=== PATIENT | female | born 1930 | race Two or more races ===

== ENCOUNTER 2016-04-03 02:00 | Inpatient (IN) | payer MEDICARE, OTHER ==
[~2016-04-03] VITALS: Ht 160 cm; Wt 57.2 kg
[2016-04-03] MEDS ORDERED: LORAZEPAM 0.5 MG TABLET PO PRN (03:00)
[2016-04-03] MEDS ORDERED: ACETAMINOPHEN 325 MG TABLET PO PRN (03:00)
[2016-04-03] MEDS ORDERED: MAGNESIUM HYDROXIDE 30 ML UDC PO PRN (03:00)
[2016-04-03] MEDS ORDERED: MAG HYDROX/AL HYDROX/SIMETH 30 ML UDC PO PRN (03:00)
[2016-04-03] MEDS ORDERED: TEMAZEPAM 7.5 MG CAPSULE PO PRN (03:00)
[2016-04-03] MEDS ORDERED: MEMA10TA PO (03:47)
[2016-04-03] MEDS ORDERED: HYDR-552 PO (03:47)
[2016-04-03] MEDS ORDERED: ALLO100T PO (03:47)
[2016-04-03] MEDS ORDERED: QUET25TA PO (03:47)
[2016-04-03] MEDS ORDERED: VALE500C PO (03:47)
[2016-04-03] MEDS ORDERED: MAGN500C4 PO (03:47)
[2016-04-03] MEDS ORDERED: MIRT15TA PO (03:47)
[2016-04-03] MEDS ORDERED: LATA2.5D2 EACHEYE (03:47)
[2016-04-03] MEDS ORDERED: DONE5TAB34 PO (03:47)
[2016-04-03] MEDS ORDERED: AMLO10TA4 PO (03:47)
[2016-04-03] MEDS ORDERED: MULT1CAP34 PO (03:47)
[2016-04-03] MEDS ORDERED: SERT50TA12 PO (03:47)
[2016-04-03] MEDS ORDERED: INSU100V28 IJ (03:47)
[2016-04-03] MEDS ORDERED: DEXTROSE 50%-WATER 50 ML DISP.SYRIN IV PRN (04:00)
[2016-04-03] MEDS ORDERED: INSULIN REGULAR, HUMAN 100 UNIT/ML 3 ML VIAL SQ PRN (04:00)
[2016-04-03] MEDS ORDERED: *INSULIN REGULAR(HUMULIN R)HUM 100 UNIT/ML VIAL SQ PRN (04:00)
[2016-04-03 04:01] VITALS: BP 147/61
[2016-04-03] MEDS ORDERED: Z GUARD REMEDY 2 OZ OINT TP PRN (06:00)
[2016-04-03 07:19] LABS: BASOPHILS # (AUTO) 0.1 /CMM (0.0-0.2); DIFF TOTAL % 100 %; EOSINOPHILS # (AUTO) 0.2 /CMM (0.0-0.7); EOSINOPHILS % (AUTO) 3.9 % (0.0-6.0); HEMATOCRIT 36 % (33-45); HEMOGLOBIN 12.1 g/dL (11.5-14.8); LYMPHOCYTES # (AUTO) 1.7 /CMM (0.8-4.8); LYMPHOCYTES % (AUTO) 27.7 % (20.0-44.0); MEAN CORPUSCULAR HEMOGLOBIN 31 PG (26.0-33.0); MEAN CORPUSCULAR HGB CONC 34 g/dl (31.0-36.0); MEAN CORPUSCULAR VOLUME 91 fL (82-100); MONOCYTES # (AUTO) 0.5 /CMM (0.1-1.30); MONOCYTES % (AUTO) 8.7 % (2.0-12.0); NEUTROPHILS # (AUTO) 3.7 /CMM (1.8-8.9); NEUTROPHILS % (AUTO) 58.7 % (43.0-81.0); PLATELET COUNT (AUTO) 308 /CMM (150-450); RED BLOOD CELL COUNT(AUTO) 3.97 MIL/uL (4.0-5.2); WHITE BLOOD COUNT (AUTO) 6.3 K/uL (4.3-11.0)
[2016-04-03 07:54] LABS: ALBUMIN 2.4 g/dL (3.4-5.0); BILIRUBIN,TOTAL 0.3 mg/dL (0.2-1.0); CALCIUM, SERUM 8.4 mg/dL (8.5-10.1); CREATININE 0.8 mg/dL (0.6-1.3); POTASSIUM 3.9 mmol/L (3.5-5.1); TOTAL PROTEIN, SERUM 5.8 g/dL (6.4-8.2)
[2016-04-03 08:00] VITALS: BP 128/61
[2016-04-03] MEDS ORDERED: VALERIAN ROOT PO SCH (09:00)
[2016-04-03] MEDS: BLOOD SUGAR DIAGNOSTIC 1 EACH STRIP VI SCH ×5 (09:10→22:06)
[2016-04-03] MEDS: ALLOPURINOL 100 MG TABLET PO SCH (09:21)
[2016-04-03] MEDS: MULTIVITAMINS,THERAPEUTIC 1 UDTAB TABLET PO SCH (09:21)
[2016-04-03] MEDS: AMLODIPINE BESYLATE 10 MG TABLET PO SCH (09:21)
[2016-04-03] MEDS: MAGNESIUM OXIDE 400 MG TABLET PO SCH ×2 (09:21→16:59)
[2016-04-03] MEDS: UREA 10% -AHA 4% CREAM 57 GM TUBE TP SCH ×2 (13:13→17:00)
[2016-04-03] MEDS: CLOTRIMAZOLE/BETAMETASONE DIPROPIONATE 15 GM TUBE TP SCH ×2 (13:13→17:00)
[2016-04-03 16:00] VITALS: BP 135/65
[2016-04-03 20:00] VITALS: BP 103/51
[2016-04-03] MEDS: ATORVASTATIN 40 MG TABLET PO SCH (21:54)
[2016-04-03] MEDS: LATANOPROST EYE DROP 0.005% 2.5 ML BOTTLE EACHEYE SCH (21:56)
[2016-04-03] MEDS: MIRTAZAPINE 15 MG TABLET PO SCH (22:05)
[2016-04-03] MEDS: OLANZAPINE 10 MG TABLET PO SCH (22:19)
[2016-04-04] MEDS: UREA 10% -AHA 4% CREAM 57 GM TUBE TP SCH ×3 (05:12→18:20)
[2016-04-04] MEDS: CLOTRIMAZOLE/BETAMETASONE DIPROPIONATE 15 GM TUBE TP SCH ×3 (05:12→18:20)
[2016-04-04 08:00] VITALS: BP 127/56
[2016-04-04] MEDS: AMLODIPINE BESYLATE 10 MG TABLET PO SCH ×2 (09:00→10:35)
[2016-04-04] MEDS: MAGNESIUM OXIDE 400 MG TABLET PO SCH ×3 (09:00→17:00)
[2016-04-04] MEDS: BLOOD SUGAR DIAGNOSTIC 1 EACH STRIP VI SCH ×4 (10:34→21:37)
[2016-04-04] MEDS: MULTIVITAMINS,THERAPEUTIC 1 UDTAB TABLET PO SCH (10:35)
[2016-04-04] MEDS: ALLOPURINOL 100 MG TABLET PO SCH (10:35)
[2016-04-04 16:38] VITALS: BP 118/55
[2016-04-04] MEDS: MUPIROCIN OINT 2% 22 GM TUBE SCH ×2 (17:00→18:29)
[2016-04-04 20:02] VITALS: BP 135/74
[2016-04-04] MEDS: MIRTAZAPINE 15 MG TABLET PO SCH (21:31)
[2016-04-04] MEDS: LATANOPROST EYE DROP 0.005% 2.5 ML BOTTLE EACHEYE SCH (21:35)
[2016-04-04] MEDS: OLANZAPINE 10 MG TABLET PO SCH (21:37)
[2016-04-04] MEDS: ATORVASTATIN 40 MG TABLET PO SCH (21:37)
[2016-04-05] MEDS: UREA 10% -AHA 4% CREAM 57 GM TUBE TP SCH ×2 (05:25→17:34)
[2016-04-05] MEDS: CLOTRIMAZOLE/BETAMETASONE DIPROPIONATE 15 GM TUBE TP SCH ×2 (05:26→17:33)
[2016-04-05] MEDS: BLOOD SUGAR DIAGNOSTIC 1 EACH STRIP VI SCH ×2 (07:30→12:00)
[2016-04-05 08:00] VITALS: BP 124/54
[2016-04-05] MEDS: ALLOPURINOL 100 MG TABLET PO SCH (09:00)
[2016-04-05] MEDS: MULTIVITAMINS,THERAPEUTIC 1 UDTAB TABLET PO SCH (09:00)
[2016-04-05] MEDS: MUPIROCIN OINT 2% 22 GM TUBE SCH (09:00)
[2016-04-05] MEDS: AMLODIPINE BESYLATE 10 MG TABLET PO SCH (09:00)
[2016-04-05] MEDS: MAGNESIUM OXIDE 400 MG TABLET PO SCH ×2 (09:00→16:18)
[2016-04-05] MEDS: OLANZAPINE 2.5 MG TABLET PO SCH ×3 (09:00→10:24)
[2016-04-05 16:00] VITALS: BP 126/50
[2016-04-05 20:31] VITALS: BP 111/54
[2016-04-05] MEDS: MIRTAZAPINE 15 MG TABLET PO SCH (21:52)
[2016-04-05] MEDS: ATORVASTATIN 40 MG TABLET PO SCH (21:52)
[2016-04-05] MEDS: OLANZAPINE 10 MG TABLET PO SCH (21:52)
[2016-04-05] MEDS: LATANOPROST EYE DROP 0.005% 2.5 ML BOTTLE EACHEYE SCH (21:59)
[2016-04-06] MEDS: UREA 10% -AHA 4% CREAM 57 GM TUBE TP SCH ×2 (05:48→17:08)
[2016-04-06] MEDS: CLOTRIMAZOLE/BETAMETASONE DIPROPIONATE 15 GM TUBE TP SCH ×2 (05:48→17:08)
[2016-04-06 08:00] VITALS: BP 138/64
[2016-04-06] MEDS: OLANZAPINE 2.5 MG TABLET PO SCH (08:25)
[2016-04-06] MEDS: ALLOPURINOL 100 MG TABLET PO SCH (08:26)
[2016-04-06] MEDS: MULTIVITAMINS,THERAPEUTIC 1 UDTAB TABLET PO SCH (08:26)
[2016-04-06] MEDS: MUPIROCIN OINT 2% 22 GM TUBE SCH (08:27)
[2016-04-06] MEDS: AMLODIPINE BESYLATE 10 MG TABLET PO SCH (08:33)
[2016-04-06] MEDS: MAGNESIUM OXIDE 400 MG TABLET PO SCH ×2 (08:33→17:06)
[2016-04-06 16:23] VITALS: BP 126/69
[2016-04-06] MEDS: OLANZAPINE 10 MG TABLET PO SCH (19:56)
[2016-04-06] MEDS: HYDROCODONE/APAP 5/325MG 1 EACH TABLET PO PRN (19:56)
[2016-04-06] MEDS: MIRTAZAPINE 15 MG TABLET PO SCH (19:56)
[2016-04-06] MEDS: ATORVASTATIN 40 MG TABLET PO SCH (19:56)
[2016-04-06] MEDS: LATANOPROST EYE DROP 0.005% 2.5 ML BOTTLE EACHEYE SCH (21:22)
[2016-04-06 23:51] VITALS: BP 112/63
[2016-04-07] MEDS: UREA 10% -AHA 4% CREAM 57 GM TUBE TP SCH ×2 (06:19→17:07)
[2016-04-07] MEDS: CLOTRIMAZOLE/BETAMETASONE DIPROPIONATE 15 GM TUBE TP SCH ×2 (06:20→17:07)
[2016-04-07 08:00] VITALS: BP 96/56
[2016-04-07] MEDS: OLANZAPINE 2.5 MG TABLET PO SCH (08:00)
[2016-04-07] MEDS: MULTIVITAMINS,THERAPEUTIC 1 UDTAB TABLET PO SCH (08:00)
[2016-04-07] MEDS: ALLOPURINOL 100 MG TABLET PO SCH (08:00)
[2016-04-07] MEDS: MAGNESIUM OXIDE 400 MG TABLET PO SCH ×2 (08:01→17:00)
[2016-04-07] MEDS: MUPIROCIN OINT 2% 22 GM TUBE SCH (08:01)
[2016-04-07] MEDS: AMLODIPINE BESYLATE 10 MG TABLET PO SCH (08:01)
[2016-04-07 16:04] VITALS: BP 115/58
[2016-04-07 20:00] VITALS: BP 103/58
[2016-04-07] MEDS: OLANZAPINE 10 MG TABLET PO SCH (21:34)
[2016-04-07] MEDS: MIRTAZAPINE 15 MG TABLET PO SCH (21:34)
[2016-04-07] MEDS: ATORVASTATIN 40 MG TABLET PO SCH (21:34)
[2016-04-07] MEDS: LATANOPROST EYE DROP 0.005% 2.5 ML BOTTLE EACHEYE SCH (21:36)
[2016-04-08] MEDS: CLOTRIMAZOLE/BETAMETASONE DIPROPIONATE 15 GM TUBE TP SCH ×2 (06:00→18:36)
[2016-04-08] MEDS: UREA 10% -AHA 4% CREAM 57 GM TUBE TP SCH ×2 (06:00→18:35)
[2016-04-08 08:20] VITALS: BP 108/61
[2016-04-08] MEDS: AMLODIPINE BESYLATE 10 MG TABLET PO SCH (09:00)
[2016-04-08] MEDS: MAGNESIUM OXIDE 400 MG TABLET PO SCH ×2 (09:00→17:00)
[2016-04-08] MEDS: OLANZAPINE 2.5 MG TABLET PO SCH (09:13)
[2016-04-08] MEDS: ALLOPURINOL 100 MG TABLET PO SCH (09:13)
[2016-04-08] MEDS: MULTIVITAMINS,THERAPEUTIC 1 UDTAB TABLET PO SCH (09:14)
[2016-04-08] MEDS: MUPIROCIN OINT 2% 22 GM TUBE SCH (09:19)
[2016-04-08] MEDS: HYDROCODONE/APAP 5/325MG 1 EACH TABLET PO PRN (14:23)
[2016-04-08 16:00] VITALS: BP 106/61
[2016-04-08 20:01] VITALS: BP 102/43
[2016-04-08] MEDS: ATORVASTATIN 40 MG TABLET PO SCH (21:24)
[2016-04-08] MEDS: OLANZAPINE 10 MG TABLET PO SCH (21:25)
[2016-04-08] MEDS: MIRTAZAPINE 15 MG TABLET PO SCH (21:25)
[2016-04-08] MEDS: LATANOPROST EYE DROP 0.005% 2.5 ML BOTTLE EACHEYE SCH (21:28)
[2016-04-09] MEDS: CLOTRIMAZOLE/BETAMETASONE DIPROPIONATE 15 GM TUBE TP SCH ×2 (05:44→16:46)
[2016-04-09] MEDS: UREA 10% -AHA 4% CREAM 57 GM TUBE TP SCH ×2 (05:49→16:45)
[2016-04-09 08:00] VITALS: BP 110/59
[2016-04-09] MEDS: ALLOPURINOL 100 MG TABLET PO SCH (09:00)
[2016-04-09] MEDS: MULTIVITAMINS,THERAPEUTIC 1 UDTAB TABLET PO SCH (10:44)
[2016-04-09] MEDS: OLANZAPINE 2.5 MG TABLET PO SCH (10:45)
[2016-04-09] MEDS: AMLODIPINE BESYLATE 10 MG TABLET PO SCH (10:45)
[2016-04-09] MEDS: MAGNESIUM OXIDE 400 MG TABLET PO SCH ×2 (10:46→16:43)
[2016-04-09] MEDS: MUPIROCIN OINT 2% 22 GM TUBE SCH (10:46)
[2016-04-09 16:00] VITALS: BP 141/65
[2016-04-09] MEDS ORDERED: MUPIROCIN OINT 2% 22 GM TUBE SCH (17:00)
[2016-04-09 19:53] VITALS: BP 128/58
[2016-04-09] MEDS: MIRTAZAPINE 15 MG TABLET PO SCH (21:00)
[2016-04-09] MEDS: ATORVASTATIN 40 MG TABLET PO SCH (21:00)
[2016-04-09] MEDS: OLANZAPINE 10 MG TABLET PO SCH (21:00)
[2016-04-09] MEDS: LATANOPROST EYE DROP 0.005% 2.5 ML BOTTLE EACHEYE SCH (22:11)
[2016-04-10] MEDS: CLOTRIMAZOLE/BETAMETASONE DIPROPIONATE 15 GM TUBE TP SCH ×2 (06:40→18:36)
[2016-04-10] MEDS: UREA 10% -AHA 4% CREAM 57 GM TUBE TP SCH ×2 (06:40→18:36)
[2016-04-10 08:05] VITALS: BP 103/69
[2016-04-10] MEDS: OLANZAPINE 2.5 MG TABLET PO SCH (09:59)
[2016-04-10] MEDS: MAGNESIUM OXIDE 400 MG TABLET PO SCH ×2 (09:59→16:07)
[2016-04-10] MEDS: MULTIVITAMINS,THERAPEUTIC 1 UDTAB TABLET PO SCH (09:59)
[2016-04-10] MEDS: ALLOPURINOL 100 MG TABLET PO SCH (09:59)
[2016-04-10 16:23] VITALS: BP 122/65
[2016-04-10 20:54] VITALS: BP 110/59
[2016-04-10] MEDS: ATORVASTATIN 40 MG TABLET PO SCH (21:34)
[2016-04-10] MEDS: OLANZAPINE 10 MG TABLET PO SCH (21:34)
[2016-04-10] MEDS: MIRTAZAPINE 15 MG TABLET PO SCH (21:34)
[2016-04-10] MEDS: LATANOPROST EYE DROP 0.005% 2.5 ML BOTTLE EACHEYE SCH (21:35)
[2016-04-11] MEDS: CLOTRIMAZOLE/BETAMETASONE DIPROPIONATE 15 GM TUBE TP SCH ×2 (06:09→18:19)
[2016-04-11] MEDS: UREA 10% -AHA 4% CREAM 57 GM TUBE TP SCH ×2 (06:10→18:19)
[2016-04-11] MEDS: MAGNESIUM OXIDE 400 MG TABLET PO SCH ×2 (08:04→17:39)
[2016-04-11] MEDS: OLANZAPINE 2.5 MG TABLET PO SCH (08:04)
[2016-04-11] MEDS: DULOXETINE HCL 20 MG CAPSULE.DR PO SCH (08:05)
[2016-04-11] MEDS: OXCARBAZEPINE 150 MG TABLET PO SCH ×2 (08:05→17:38)
[2016-04-11] MEDS: ALLOPURINOL 100 MG TABLET PO SCH (08:05)
[2016-04-11] MEDS: MULTIVITAMINS,THERAPEUTIC 1 UDTAB TABLET PO SCH (08:06)
[2016-04-11 08:34] VITALS: BP 127/70
[2016-04-11] MEDS ORDERED: DULOXETINE HCL 30 MG CAPSULE.DR PO SCH (09:00)
[2016-04-11 16:34] VITALS: BP 124/58
[2016-04-11 20:04] VITALS: BP 95/60
[2016-04-11] MEDS: OLANZAPINE 10 MG TABLET PO SCH (21:44)
[2016-04-11] MEDS: MIRTAZAPINE 15 MG TABLET PO SCH (21:44)
[2016-04-11] MEDS: LATANOPROST EYE DROP 0.005% 2.5 ML BOTTLE EACHEYE SCH (21:44)
[2016-04-11] MEDS: ATORVASTATIN 40 MG TABLET PO SCH (21:44)
[2016-04-12] MEDS: UREA 10% -AHA 4% CREAM 57 GM TUBE TP SCH ×2 (06:00→17:20)
[2016-04-12] MEDS: CLOTRIMAZOLE/BETAMETASONE DIPROPIONATE 15 GM TUBE TP SCH ×2 (06:11→17:19)
[2016-04-12 08:00] VITALS: BP 123/62
[2016-04-12] MEDS: OLANZAPINE 2.5 MG TABLET PO SCH (08:34)
[2016-04-12] MEDS: MEMANTINE HCL 5 MG TABLET PO SCH (08:35)
[2016-04-12] MEDS: ALLOPURINOL 100 MG TABLET PO SCH (08:35)
[2016-04-12] MEDS: DULOXETINE HCL 20 MG CAPSULE.DR PO SCH (08:35)
[2016-04-12] MEDS: MULTIVITAMINS,THERAPEUTIC 1 UDTAB TABLET PO SCH (08:35)
[2016-04-12] MEDS: MAGNESIUM OXIDE 400 MG TABLET PO SCH ×2 (08:35→17:15)
[2016-04-12] MEDS: OXCARBAZEPINE 150 MG TABLET PO SCH ×2 (08:36→17:15)
[2016-04-12 16:00] VITALS: BP 120/70
[2016-04-12 20:00] VITALS: BP 132/68
[2016-04-12] MEDS: OLANZAPINE 10 MG TABLET PO SCH (21:53)
[2016-04-12] MEDS: ATORVASTATIN 40 MG TABLET PO SCH (21:53)
[2016-04-12] MEDS: LATANOPROST EYE DROP 0.005% 2.5 ML BOTTLE EACHEYE SCH (21:53)
[2016-04-12] MEDS: MIRTAZAPINE 15 MG TABLET PO SCH (21:53)
[2016-04-13] MEDS: CLOTRIMAZOLE/BETAMETASONE DIPROPIONATE 15 GM TUBE TP SCH ×2 (05:49→17:52)
[2016-04-13] MEDS: UREA 10% -AHA 4% CREAM 57 GM TUBE TP SCH ×2 (05:50→17:50)
[2016-04-13 07:59] LABS: BASOPHILS # (AUTO) 0.1 /CMM (0.0-0.2); BASOPHILS % (AUTO) 1.2 % (0.0-2.0); DIFF TOTAL % 100 %; EOSINOPHILS # (AUTO) 0.2 /CMM (0.0-0.7); EOSINOPHILS % (AUTO) 3.7 % (0.0-6.0); HEMATOCRIT 38 % (33-45); HEMOGLOBIN 12.7 g/dL (11.5-14.8); LYMPHOCYTES # (AUTO) 1.8 /CMM (0.8-4.8); LYMPHOCYTES % (AUTO) 29.5 % (20.0-44.0); MEAN CORPUSCULAR HEMOGLOBIN 31 PG (26.0-33.0); MEAN CORPUSCULAR HGB CONC 34 g/dl (31.0-36.0); MEAN CORPUSCULAR VOLUME 92 fL (82-100); MONOCYTES # (AUTO) 0.5 /CMM (0.1-1.30); MONOCYTES % (AUTO) 8.8 % (2.0-12.0); NEUTROPHILS # (AUTO) 3.5 /CMM (1.8-8.9); NEUTROPHILS % (AUTO) 56.8 % (43.0-81.0); PLATELET COUNT (AUTO) 297 /CMM (150-450); RED BLOOD CELL COUNT(AUTO) 4.13 MIL/uL (4.0-5.2); WHITE BLOOD COUNT (AUTO) 6.2 K/uL (4.3-11.0)
[2016-04-13 08:00] VITALS: BP 117/55
[2016-04-13 08:08] LABS: CALCIUM, SERUM 8.6 mg/dL (8.5-10.1); CREATININE 0.8 mg/dL (0.6-1.3)
[2016-04-13] MEDS: DULOXETINE HCL 30 MG CAPSULE.DR PO SCH (08:36)
[2016-04-13] MEDS: OXCARBAZEPINE 150 MG TABLET PO SCH ×2 (08:36→17:49)
[2016-04-13] MEDS: OLANZAPINE 2.5 MG TABLET PO SCH (08:36)
[2016-04-13] MEDS: ALLOPURINOL 100 MG TABLET PO SCH (08:37)
[2016-04-13] MEDS: MAGNESIUM OXIDE 400 MG TABLET PO SCH ×2 (08:37→17:49)
[2016-04-13] MEDS: MULTIVITAMINS,THERAPEUTIC 1 UDTAB TABLET PO SCH (08:37)
[2016-04-13] MEDS: MEMANTINE HCL 5 MG TABLET PO SCH (08:37)
[2016-04-13 16:00] VITALS: BP 159/67
[2016-04-13 20:00] VITALS: BP 123/64
[2016-04-13] MEDS: MIRTAZAPINE 15 MG TABLET PO SCH (21:27)
[2016-04-13] MEDS: OLANZAPINE 10 MG TABLET PO SCH (21:27)
[2016-04-13] MEDS: ATORVASTATIN 40 MG TABLET PO SCH (21:27)
[2016-04-13] MEDS: LATANOPROST EYE DROP 0.005% 2.5 ML BOTTLE EACHEYE SCH (22:00)
[2016-04-14] MEDS: CLOTRIMAZOLE/BETAMETASONE DIPROPIONATE 15 GM TUBE TP SCH ×2 (05:37→17:31)
[2016-04-14] MEDS: UREA 10% -AHA 4% CREAM 57 GM TUBE TP SCH ×2 (05:37→17:31)
[2016-04-14 08:00] VITALS: BP 158/66
[2016-04-14] MEDS: OXCARBAZEPINE 150 MG TABLET PO SCH ×2 (09:11→17:31)
[2016-04-14] MEDS: MAGNESIUM OXIDE 400 MG TABLET PO SCH ×2 (09:11→17:31)
[2016-04-14] MEDS: MULTIVITAMINS,THERAPEUTIC 1 UDTAB TABLET PO SCH (09:11)
[2016-04-14] MEDS: ALLOPURINOL 100 MG TABLET PO SCH (09:11)
[2016-04-14] MEDS: OLANZAPINE 2.5 MG TABLET PO SCH (09:11)
[2016-04-14] MEDS: DULOXETINE HCL 30 MG CAPSULE.DR PO SCH (09:11)
[2016-04-14] MEDS: MEMANTINE HCL 5 MG TABLET PO SCH (09:11)
[2016-04-14 16:11] VITALS: BP 138/82
[2016-04-14 19:57] VITALS: BP 126/66
[2016-04-14] MEDS: MIRTAZAPINE 15 MG TABLET PO SCH (21:39)
[2016-04-14] MEDS: ATORVASTATIN 40 MG TABLET PO SCH (21:39)
[2016-04-14] MEDS: OLANZAPINE 10 MG TABLET PO SCH (21:40)
[2016-04-14] MEDS: LATANOPROST EYE DROP 0.005% 2.5 ML BOTTLE EACHEYE SCH (21:41)
[2016-04-15] MEDS: CLOTRIMAZOLE/BETAMETASONE DIPROPIONATE 15 GM TUBE TP SCH ×2 (05:35→17:08)
[2016-04-15] MEDS: UREA 10% -AHA 4% CREAM 57 GM TUBE TP SCH ×2 (05:35→17:08)
[2016-04-15 08:00] VITALS: BP 151/65
[2016-04-15] MEDS: OXCARBAZEPINE 150 MG TABLET PO SCH ×2 (08:42→17:07)
[2016-04-15] MEDS: DULOXETINE HCL 30 MG CAPSULE.DR PO SCH (08:42)
[2016-04-15] MEDS: MULTIVITAMINS,THERAPEUTIC 1 UDTAB TABLET PO SCH (08:42)
[2016-04-15] MEDS: ALLOPURINOL 100 MG TABLET PO SCH (08:42)
[2016-04-15] MEDS: MAGNESIUM OXIDE 400 MG TABLET PO SCH ×2 (08:42→17:07)
[2016-04-15] MEDS: OLANZAPINE 2.5 MG TABLET PO SCH (08:42)
[2016-04-15] MEDS: MEMANTINE HCL 5 MG TABLET PO SCH (08:43)
[2016-04-15 16:22] VITALS: BP 113/71
[2016-04-15 19:58] VITALS: BP 107/56
[2016-04-15] MEDS: ATORVASTATIN 40 MG TABLET PO SCH (21:48)
[2016-04-15] MEDS: LATANOPROST EYE DROP 0.005% 2.5 ML BOTTLE EACHEYE SCH (21:48)
[2016-04-15] MEDS: OLANZAPINE 10 MG TABLET PO SCH (21:49)
[2016-04-15] MEDS: MIRTAZAPINE 15 MG TABLET PO SCH (21:49)
[2016-04-16] MEDS: UREA 10% -AHA 4% CREAM 57 GM TUBE TP SCH (06:00)
[2016-04-16] MEDS: CLOTRIMAZOLE/BETAMETASONE DIPROPIONATE 15 GM TUBE TP SCH (06:00)
[2016-04-16] MEDS: OXCARBAZEPINE 150 MG TABLET PO SCH (08:11)
[2016-04-16] MEDS: MULTIVITAMINS,THERAPEUTIC 1 UDTAB TABLET PO SCH (08:11)
[2016-04-16] MEDS: ALLOPURINOL 100 MG TABLET PO SCH (08:11)
[2016-04-16] MEDS: MEMANTINE HCL 5 MG TABLET PO SCH (08:12)
[2016-04-16] MEDS: MAGNESIUM OXIDE 400 MG TABLET PO SCH (08:12)
[2016-04-16] MEDS: OLANZAPINE 2.5 MG TABLET PO SCH (08:12)
[2016-04-16] MEDS: DULOXETINE HCL 30 MG CAPSULE.DR PO SCH (08:12)
[2016-04-16 08:14] VITALS: BP 106/41
== END 2016-04-16 16:00 | DRG 885 ==
LOC: GPS 02:00
PROVIDERS: ADMIT Psychiatry & Neurology Psychiatry; ATTEND Family Medicine
DX: F29 Unspecified psychosis not due to a substance or known physiological condition (principal); F02.81 Dementia in other diseases classified elsewhere, unspecified severity, with behavioral disturbance; I11.0 Hypertensive heart disease with heart failure; E44.0 Moderate protein-calorie malnutrition; E11.9 Type 2 diabetes mellitus without complications; E78.5 Hyperlipidemia, unspecified; F32.9 Major depressive disorder, single episode, unspecified; G30.9 Alzheimer's disease, unspecified; I25.10 Atherosclerotic heart disease of native coronary artery without angina pectoris; K21.9 Gastro-esophageal reflux disease without esophagitis; Z79.4 Long term (current) use of insulin; Z89.422 Acquired absence of other left toe(s); F39 Unspecified mood [affective] disorder; Z73.6 Limitation of activities due to disability; Z68.22 Body mass index [BMI] 22.0-22.9, adult; L53.9 Erythematous condition, unspecified; G20 Parkinson's disease; I50.9 Heart failure, unspecified
CPT/HCPCS: 36415; 70450-TC; 80048-TC; 80053-TC; 80061-TC; 82746; 82962-TC; 84443-TC; 85025-TC; 87081-TC; 93307-TC; 97001-TC; 97116-TC; 97530-TC; J1815; Z7610